=== PATIENT | male | born 1995 | race Two or more races ===

== ENCOUNTER 2021-10-21 12:24 | Outpatient (REF) | payer OTHER, SELFPAY ==
[2021-10-21 13:04] LABS: COVID-19 Test Negative (Negative)
[2021-10-21 13:32] LABS: Influenza A PCR NEGATIVE (Negative); Influenza B PCR NEGATIVE (Negative); Resp Syncy Virus RNA Qual PCR NEGATIVE (Negative); SARS COV2 PCR INHOUSE NEGATIVE (Negative)
== END 2021-10-21 12:25 | disposition home or self-care (01) ==
LOC: HO.LAB 12:24
PROVIDERS: Visit Provider Internal Medicine
DX: Z20.822 Contact with and (suspected) exposure to COVID-19 (principal)
CPT/HCPCS: 0241U; 87635